=== PATIENT | male | born 1955 | race Caucasian/White ===

== ENCOUNTER 2024-08-19 00:39 | Day surgery (SDC) | payer BC, SELFPAY ==
[2024-08-05 13:38] VITALS: BMI 32.3
[2024-08-19 08:00] VITALS: BP 174/85; PULSE 63; RESP 16; TEMP 36; O2SAT 99
[2024-08-19] MEDS: LACTATED RINGERS 1,000 ML 150 ML IV CONT (08:11)
--- NOTE | 2024-08-19 08:33 | WPDANESEPPF ---
Anes - Initial Pre Proc Eval Procedure: Operation Date: 08/19/24 09:00 Proposed Procedures p Colonoscopy - James Carson MD Date/Time: 08/19/24 08:33 Surgeon: James Carson MD Pre Op Diagnosis: hx of colon polyps Patient Data Age: 68 Gender: M Height: 1.78 m Weight: 102.6 kg Last Vital Signs Temp 36.0 C L 08/19/24 08:00 Pulse 63 08/19/24 08:00 Resp 16 08/19/24 08:00 BP 174/85 H 08/19/24 08:00 Pulse Ox 99 08/19/24 08:00 O2 Del Method Room Air 08/19/24 08:00 Allergies Allergy/AdvReac Type Severity Reaction Status Date / Time No Known Allergies Allergy Verified 08/19/24 07:58 Home Medications ?Medication ?Instructions ?Recorded ?Confirmed ?Type amlodipine 10 mg tablet 10 mg PO DAILY 08/05/24 08/19/24 History azithromycin 500 mg tablet 500 mg PO .Q sun, sun, sunday08/05/24 08/19/24 History ethambutol 400 mg tablet 400 mg PO .Q sun, sun, sunday08/05/24 08/19/24 History rifampin 300 mg capsule 600 mg PO .Q sun, sun, sunday08/05/24 08/19/24 History telmisartan 80 mg tablet 80 mg PO DAILY 08/05/24 08/19/24 History Patient hx anesthesia problems: none Family hx anesthesia problems: none Results Review: All pre-operative results and documents have been reviewed as part of the pre-operative evaluation. [facility] Past Medical History Medical History (Updated 08/19/24 @ 08:33 by Derick Avery MD) Obesity HTN (hypertension) Social History Social History Smoking status: Never smoker Living arrangements: with family Additional living arrangements comments: with Spiritual care concerns: No Anes - Eval Final PreProcedure Day of Procedure 08/19/24 08:33 Patient weight: obese Heart: regular rate and rhythm Lungs: clear to auscultation Airway: Mallampati scale class II Neurological: alert and oriented Last oral intake: >/= 8 hours ASA classification: II Emergent: no Anesthetic plan: proceed Anesthesia type and monitoring: general GIVS and standard monitoring Results Review: All pre-operative results and documents have been reviewed as part of the pre-operative evaluation. Informed Consent: The patient's anesthetic plan and its attendant risks and benefits were discussed with the patient/family/POA. Questions were solicited and answers provided to the satisfaction of the patient/family/POA.
--- NOTE | 2024-08-19 08:40 | PM.HPGS ---
History of Present Illness History of Present Illness Consent: Risks, benefits, and alternatives have been discussed and questions answered. Patient agrees to proceed with procedure. Chief complaint: hx of colon polyps Narrative: Adan East is a 68 year old male with colon polyp in 2019 Review of Systems Review of Systems: All systems reviewed & are unremarkable except as noted in HPI and below PMFSH Past Medical History Medical History (Updated 08/19/24 @ 08:40 by James Carson MD) Colon polyp Obesity HTN (hypertension) Social History Social History Smoking status: Never smoker Living arrangements: with family Additional living arrangements comments: with Spiritual care concerns: No Meds Home Medications and Allergies Home Medications ?Medication ?Instructions ?Recorded ?Confirmed ?Type amlodipine 10 mg tablet 10 mg PO DAILY 08/05/24 08/19/24 History azithromycin 500 mg tablet 500 mg PO .Q sun, sun, sunday08/05/24 08/19/24 History ethambutol 400 mg tablet 400 mg PO .Q sun, sun, sunday08/05/24 08/19/24 History rifampin 300 mg capsule 600 mg PO .Q sun, sun, sunday08/05/24 08/19/24 History telmisartan 80 mg tablet 80 mg PO DAILY 08/05/24 08/19/24 History Allergies Allergy/AdvReac Type Severity Reaction Status Date / Time No Known Allergies Allergy Verified 08/19/24 07:58 Vital Signs Vital Signs - 24 hr 08/19/24 08:00 Temperature 96.8 F L Pulse Rate 63 Respiratory Rate 16 Blood Pressure 174/85 H Pulse Oximetry 99 Oxygen Delivery Room Air Exam Const: General: comfortable and no acute distress HENMT: Face/Nose/Sinus: Normal nares present Eyes: General: appearance normal, both eyes and all related structures Neck: Neck: no JVD Resp: Auscultation: clear to auscultation bilaterally Cardio: Rate: regular rate Rhythm: regular rhythm GI: Inspection: non-distended GI Palp: Yes Soft to palpation Skin: General skin exam: normal color Neuro: General: gait normal Speech: normal speech Extrem: General: normal to inspection Psych: Mental Status: mental status grossly normal Assessment and Plan Assessment and plan (1) Colon polyp: Code(s): K63.5 - Polyp of colon Status: Acute Assessment and Plan: colonoscopy
[2024-08-19 08:53] VITALS: BP 103/59; PULSE 46; RESP 20; O2SAT 97
[2024-08-19 09:03] VITALS: BP 108/63; PULSE 50; RESP 20; O2SAT 96
[2024-08-19 09:13] VITALS: BP 124/69; PULSE 51; RESP 18; O2SAT 98
--- NOTE | 2024-08-19 09:27 | SUR.PHASEII ---
during recovery pts heart rate noted to be sinus chelsey in the mid 40's. pt states feels fine, states has recently started a new bp med. takes his own bp and heart rate at home and records it on paper. states heart rate at home mostly in the low 60s. instructed him to continue to record and notify doctor if lower heart rate continues. nanci wade crna notified and stated pts heart rate low during procedure.
== END 2024-08-19 09:36 | disposition home or self-care (01) ==
PROVIDERS: PCP Family Medicine; Referring Provider Family Medicine; Visit Provider Internal Medicine Gastroenterology
PROC: 0DJD8ZZ Inspection of Lower Intestinal Tract, Via Natural or Artificial Opening Endoscopic (ICD-10-PCS; CPT 45378; principal; 2024-08-19 09:00)
DX: Z12.11 Encounter for screening for malignant neoplasm of colon (principal); D12.2 Benign neoplasm of ascending colon; K64.8 Other hemorrhoids; K57.30 Diverticulosis of large intestine without perforation or abscess without bleeding; I10 Essential (primary) hypertension; E66.9 Obesity, unspecified; Z68.32 Body mass index [BMI] 32.0-32.9, adult
CPT/HCPCS: 45380; 88305; J2704; J7120